=== PATIENT | female | born 1960 | race Caucasian/White ===

== ENCOUNTER → 2019-10-25 | Outpatient (CLI) | payer OTHER ==
[2019-10-25 08:48] LABS: HCT 41.4 % (34.0-46.0); HGB 12.7 gm/dL (11.4-16.0); Hypochromasia Slight; MCH 28.6 pg (25.0-35.0); MCHC 30.8 g/dL (31.0-37.0); Platelet Count 208 k/uL (150-450); RBC 4.45 m/uL (3.80-5.40); RDW 14.9 % (11.5-15.5); WBC 5.4 k/uL (3.8-10.6)
[2019-10-25 09:11] LABS: African American GFR (CKD) >90 (>60 ml/min/1.73 sqM); Anion Gap 7 mmol/L; Blood Urea Nitrogen 18 mg/dL (7-17); Carbon Dioxide 32 mmol/L (22-30); Chloride 101 mmol/L (98-107); Non-African American GFR(CKD) 90 (>60 ml/min/1.73 sqM); Potassium 4.7 mmol/L (3.5-5.1); Sodium 140 mmol/L (137-145)
== END | disposition home or self-care (01) ==
LOC: LABPAT 08:12
PROVIDERS: ATTEND Internal Medicine Interventional Cardiology
DX: Z01.818 Encounter for other preprocedural examination (principal); I25.10 Atherosclerotic heart disease of native coronary artery without angina pectoris
CPT/HCPCS: 36415; 80051; 82565; 84520; 85027

== ENCOUNTER 2019-10-29 08:11 | Day surgery (SDC) | payer OTHER ==
[2019-10-26 11:20] VITALS: BMI 37.6
[~2019-10-29 08:11] MED LIST: ALPRAZolam 0.25 MG TAB PO PRN; ALPRAZolam 0.5 MG TAB PO PRN; ASPIRIN 325 MG TAB PO STA; ATORVASTATIN 80 MG TAB PO STA; NITROGLYCERIN SL TABS 0.4 MG TAB SUBLINGUAL PRN; SODIUM CHLORIDE 0.9% 1,000 ML in EMPTY BAG 1 BAG IV ONE
[2019-10-29 08:43] LABS: Glucose,Whole Blood 144 mg/dL (75-99)
[2019-10-29] MEDS ORDERED: LIDOCAINE 1% INJ 10MG/ML (20 ML MDV) ONE (13:27)
[2019-10-29] MEDS ORDERED: VERAPAMIL 2.5 MG/ML 2 ML AMP ONE (13:27)
[2019-10-29] MEDS ORDERED: HEPARIN SODIUM 1,000 UN/ML (10ML VL) ONE (13:28)
[2019-10-29] MEDS ORDERED: MIDAZOLAM 2 MG/2 ML VIAL IVP ONE ×2 (13:35→13:44)
[2019-10-29] MEDS ORDERED: LIDOCAINE 1% INJ 10MG/ML (20 ML MDV) SQ ONE (13:38)
[2019-10-29] MEDS ORDERED: VERAPAMIL SYRINGE (5 MG/10 ML) INTRAARTER ONE (13:41)
[2019-10-29] MEDS ORDERED: HEPARIN SODIUM 1,000 UN/ML (10ML VL) IV ONE (13:42)
[2019-10-29] MEDS ORDERED: HYDROmorphone 1 MG/ML 1 ML SYRINGE ONE (13:46)
[2019-10-29] MEDS ORDERED: HYDROmorphone 1 MG/ML 1 ML SYRINGE IVP ONE (13:47)
[2019-10-29] MEDS ORDERED: IOPAMIDOL-370 125ML BTL INJ ONE (13:54)
[2019-10-29] MEDS ORDERED: RX INFO: IV CONTRAST WAS GIVEN 1 EACH MISC MISCELLANE PRN (13:58)
[2019-10-29] MEDS ORDERED: SODIUM CHLORIDE 0.9% 1,000 ML IV SCH (14:00)
[2019-10-29] MEDS ORDERED: FAMOTIDINE 20 MG TAB PO PRN (14:01)
[2019-10-29 17:53] LABS: Glucose,Whole Blood 98 mg/dL (75-99)
[2019-10-29] MEDS ORDERED: ATORVASTATIN 20 MG TAB PO SCH (21:00)
[2019-10-29] MEDS ORDERED: lisinopriL 5 MG TAB PO SCH (21:00)
[2019-10-29] MEDS ORDERED: NON FORMULARY DRUG (Ubidecarenone [Co Q-10] 200 MG) PO SCH (21:00)
--- NOTE | 2019-10-29 21:43 | CC ---
CARDIAC CATHETERIZATION REPORT DATE OF PROCEDURE: 10/29/2019 PERFORMING PHYSICIAN: Alexandr Heath M.D. PROCEDURES PERFORMED: 1. Selective right and left coronary angiogram. 2. Left heart catheterization. INDICATION: This is a very pleasant 59-year-old female patient with hypertension and dyslipidemia who was experiencing chest discomfort and underwent myocardial perfusion imaging stress test. That revealed an anterior ischemia. Because of that, heart catheterization was advised. APPROACH: Right radial artery and right common femoral artery. COMPLICATIONS: None. LEVEL OF SEDATION: Moderate, with sedation length of 18 minutes. PROCEDURE DESCRIPTION: After obtaining informed consent, the patient was brought to the cardiac lab nurse. The right radial artery was cannulated using micropuncture technique. The micropuncture wire passed easily. Then I placed a 6-[place] sheath. After that I gave the patient 2 mg of verapamil IA and 10,000 units of heparin IV. Attempting to advance the catheter was quite painful to the patient at the elbow, and I could not advance the catheter because of severe spasm. Because of that, I decided to stop. The catheter was the JR4. The right radial approach was aborted. I accessed the right groin, where I accessed the right common femoral artery using micropuncture technique. The micropuncture wire passed easily. Then I placed a 6-[place] sheath at the right common femoral artery. Selective right and left coronary angiogram was performed using JR4 and JL3.5 catheters. Left heart catheterization was performed using a 6-[place] pigtail catheter. The procedure was completed without any complication. SELECTIVE CORONARY ANGIOGRAM: 1. The right coronary artery is a large-caliber vessel. It is a dominant vessel. The RCA is angiographically normal. It distally bifurcates into PDA and PLV branches, and both appeared to be angiographically normal. 2. The left main is angiographically normal. It bifurcates into left circumflex, ramus intermedius, and left anterior descending artery. 3. The left circumflex is a large-caliber vessel and it is a nondominant vessel. It is angiographically normal. 4. The ramus intermedius is a large-caliber vessel and seems to be angiographically normal. 5. The LAD is a large-caliber vessel that also seems to be angiographically normal. The LAD gives rise to a large diagonal branch in the proximal portion, which seems to be angiographically normal, and a small diagonal branch in the midportion which seems to be also angiographically normal. 6. HEMODYNAMICS: The LVEDP was 8-10 mmHg without significant gradient across the aortic valve. CONCLUSION: 1. Normal coronary angiogram. 2. Normal left ventricular end-diastolic pressure. POST-PROCEDURE MANAGEMENT: 1. Medical treatment. 2. Follow up with the patient. FELIX / MONO: [id number] /
[2019-10-29 22:11] VITALS: BP 120/68; PULSE 90; RESP 17; TEMP 97.8
[2019-10-30] MEDS ORDERED: glipiZIDE 5 MG TAB PO SCH (07:30)
[2019-10-30] MEDS ORDERED: PIOGLITAZONE 30 MG TAB PO SCH (09:00)
[2019-10-30] MEDS ORDERED: ASPIRIN 81 MG PO SCH (09:00)
[2019-10-31] MEDS ORDERED: ERGOCALCIFEROL 50,000 UNIT CAP PO SCH (09:00)
== END 2019-10-29 21:51 | disposition home or self-care (01) ==
LOC: CATHCVL 08:11 → 1SOBS 15:03 → CATHCVL 21:51
PROVIDERS: ATTEND Internal Medicine Interventional Cardiology
DX: I25.9 Chronic ischemic heart disease, unspecified (principal); I20.0 Unstable angina; I35.1 Nonrheumatic aortic (valve) insufficiency; I10 Essential (primary) hypertension; E78.00 Pure hypercholesterolemia, unspecified; E11.9 Type 2 diabetes mellitus without complications; E78.5 Hyperlipidemia, unspecified; Z79.82 Long term (current) use of aspirin; Z79.84 Long term (current) use of oral hypoglycemic drugs; Z79.899 Other long term (current) drug therapy; Z88.0 Allergy status to penicillin; Z87.891 Personal history of nicotine dependence; Z82.49 Family history of ischemic heart disease and other diseases of the circulatory system
CPT/HCPCS: 93458

== ENCOUNTER 2020-08-16 06:31 | Day surgery (SDC) | payer OTHER ==
[2020-08-11 14:02] VITALS: BMI 37.5
[~2020-08-16 06:31] MED LIST changes: -ALPRAZolam 0.25 MG TAB PO PRN; -ALPRAZolam 0.5 MG TAB PO PRN; -ASPIRIN 325 MG TAB PO STA; -ATORVASTATIN 80 MG TAB PO STA; +LACTATED RINGERS 1,000 ML IV SCH; -NITROGLYCERIN SL TABS 0.4 MG TAB SUBLINGUAL PRN; -SODIUM CHLORIDE 0.9% 1,000 ML in EMPTY BAG 1 BAG IV ONE
[2020-08-16 07:00] VITALS: TEMP 97.7
[2020-08-16] MEDS ORDERED: LIDOCAINE 1% (10MG/ML) FOR IV START INTRADERMA ONE (07:07)
[2020-08-16 07:09] LABS: Glucose,Whole Blood 121 mg/dL (75-99)
[2020-08-16] MEDS ORDERED: PROPOFOL 10 MG/ML 20 ML VIAL IV ONE (07:38)
--- NOTE | 2020-08-16 07:54 | P.PCN ---
Date of Procedure: 08/16/20 Procedure(s) Performed: BRIEF HISTORY: Patient is a 60-year-old pleasant white female scheduled for an elective colonoscopy as a part of screening for colorectal neoplasia. PROCEDURE PERFORMED: Colonoscopy. PREOPERATIVE DIAGNOSIS: Screening for colon cancer. IV sedation per Anesthesia. PROCEDURE: After informed consent was obtained, the patient, was brought into the endoscopy unit. IV sedation was administered by Anesthesia under continuous monitoring. Digital rectal examination was normal. Initially the Olympus CF-160 flexible video colonoscope was then inserted in the rectum, gradually advanced into the cecum without any difficulty. Careful examination was performed as the scope was gradually being withdrawn. Ileocecal valve and the appendiceal orifice were visualized and appeared normal. Prep was excellent. Mucosa of the cecum, ascending colon, transverse colon, descending colon, sigmoid colon, and rectum appeared normal. Retroflexion was performed in the rectum and no lesions were seen. The patient tolerated the procedure well. IMPRESSION: Normal-appearing colon from rectum to cecum with no evidence of colitis or colorectal neoplasia . RECOMMENDATIONS: Findings of this examination were discussed with the patient as well as her family. She was advised to have a repeat screening colonoscopy in 10 years..
[2020-08-16 08:14] VITALS: BP 128/81; PULSE 70; RESP 18
== END 2020-08-16 08:50 | disposition home or self-care (01) ==
LOC: ORWHC2ENDO 06:31
PROVIDERS: ATTEND Internal Medicine Gastroenterology
DX: Z12.11 Encounter for screening for malignant neoplasm of colon (principal); K21.9 Gastro-esophageal reflux disease without esophagitis; I10 Essential (primary) hypertension; E78.5 Hyperlipidemia, unspecified; E11.9 Type 2 diabetes mellitus without complications; Z79.84 Long term (current) use of oral hypoglycemic drugs; Z79.82 Long term (current) use of aspirin; Z79.899 Other long term (current) drug therapy
CPT/HCPCS: J2704; G0121